=== PATIENT | male | born 1945 | race Caucasian/White ===

== ENCOUNTER 2017-01-31 13:33 | Emergency (ER) | payer MEDICARE, OTHER ==
[2017-01-31] MEDS ORDERED: Acetaminophen/oxyCODONE 325-5 MG Tab PO ONE (14:36)
[2017-01-31] MEDS ORDERED: diphenhydrAMINE 50 MG/ML SDV IM STA (15:30)
[2017-01-31] MEDS ORDERED: LORazepam 2 MG/ML MDV IM STA (16:06)
--- NOTE | 2017-01-31 17:12 | EDM.PDOC ---
ED HPI GENERAL MEDICAL PROBLEM - General Chief Complaint: Upper Extremity Injury/Pain Stated Complaint: SHOULDER PAIN Time Seen by Provider: 01/31/17 16:48 Source of Information: Reports: Patient, Family History Limitations: Reports: Physical Impairment - History of Present Illness INITIAL COMMENTS - FREE TEXT/NARRATIVE: 71 y.o.w.m with h/o parkinson disease, on carbidopa, came to the ed with is SO do to severe left shoulder pain. Pt was seen in several clinics and "nobody could help".Pt denied trauma. Pt describes the symptoms as spasm. he did not see a neurologist for several years. [place]opa level was never checked. Pt is not able to sit still. He is constantly moving. No N/V/D no other acute medical issues. Onset: Unknown/Unsure Onset Date: 01/30/17 Onset Time: 08:00 Location: Reports: Upper Extremity, Left, Generalized Quality: Reports: Ache, Burning, Dull, Pressure Severity: Moderate Improves with: Reports: Medication Worsens with: Reports: Rest Left Shoulder Pain Score (Numeric/FACES): 8 - Related Data Allergies Allergy/AdvReac Type Severity Reaction Status Date / Time acetaminophen [From Vicodin] Allergy Stomach Verified 01/31/17 14:25 Upset hydrocodone [From Vicodin] Allergy Stomach Verified 01/31/17 14:25 Upset Home Meds: Home Meds Carbidopa/Levodopa [Sinemet 25-250 MG] 01/31/17 [History] LORazepam [Ativan] 1 mg PO [id number] PRN #6 tablet 01/31/17 [Rx] Lisinopril 10 mg PO DAILY 01/31/17 [History] Orphenadrine [Norflex] 100 mg PO QID PRN #20 tab.er 01/31/17 [Rx] Oxazepam [Oxazepam] 15 mg PO BEDTIME 01/31/17 [History] Tamsulosin [Flomax] 0.4 mg PO BEDTIME 01/31/17 [History] atorvaSTATin [Lipitor] 10 mg PO BEDTIME 01/31/17 [History] Review of Systems - Review of Systems Review Of Systems: See Below Constitutional: Reports: No Symptoms Eyes: Reports: No Symptoms Ears: Reports: No Symptoms Nose: Reports: No Symptoms Mouth/Throat: Reports: No Symptoms Respiratory: Reports: No Symptoms Cardiovascular: Reports: No Symptoms GI/Abdominal: Reports: No Symptoms Genitourinary: Reports: No Symptoms Musculoskeletal: Reports: Muscle Pain, Muscle Stiffness Skin: Reports: No Symptoms Neurological: Reports: Other (dystonia) Psychiatric: Reports: No Symptoms ED EXAM, GENERAL - Physical Exam Exam: See Below Exam Limited By: Physical Impairment General Appearance: Alert, Thin Eye Exam: Bilateral Eye: Normal Inspection Ears: Normal External Exam Ear Exam: Bilateral Ear: Auricle Normal Nose: Normal Inspection Throat/Mouth: Normal Inspection Head: Atraumatic, Normocephalic Neck: Normal Inspection, Supple, Full Range of Motion Respiratory/Chest: No Respiratory Distress, Lungs Clear, Normal Breath Sounds Cardiovascular: Normal Peripheral Pulses, Regular Rate, Rhythm, No Edema Peripheral Pulses: 1+: Femoral (L), Femoral (R) GI/Abdominal: Normal Bowel Sounds, Soft, Non-Tender (Male) Exam: Deferred Rectal (Males) Exam: Deferred Back Exam: Decreased Range of Motion (s/p back surgery) Extremities: Normal Inspection, Normal Range of Motion Neurological: Alert, Oriented, CN II-XII Intact, Abnormal Gait, Other (dystonia) Psychiatric: Normal Affect, Normal Mood Skin Exam: Warm, Dry, Intact, Normal Color, No Rash Lymphatic: No Adenopathy Course - Vital Signs Text/Narrative:: 71 y.o.w.m with h/o parkinson disease, on carbidopa, came to the ed with is SO do to severe left shoulder pain. Pt was seen in several clinics and "nobody could help".Pt denied trauma. Pt describes the symptoms as spasm. he did not see a neurologist for several years. Cabidopa level was never checked. Pt is not able to sit still. He is constantly moving. No N/V/D no other acute medical issues. PE: Dystonia H/O parkinson disease, left shoulder pain Imaging: X ray left shoulder: NAD Impression: Dystonia,left shoulder sprain, H/O Parkinson disease,. muscle spam DDx: Sz, Psych, Meds SE Tx: Benadyl, Norflex, Percoset and Ativan, ICE to left shoulder Reexam: Improved after Ativan was applied Plan: D/C with instructions. Last Recorded V/S: Last Vital Signs Temp 36.6 C 01/31/17 13:40 Pulse 68 01/31/17 16:48 Resp 16 01/31/17 16:48 BP 109/42 L 01/31/17 16:48 Pulse Ox 95 01/31/17 16:48 - Orders/Labs/Meds Orders: Active Orders 24 hr Category Date Time Status Cooling Warming Measures [RC] ASDIRECTED Care 01/31/17 15:31 Active Shoulder Comp Lt [CR] Stat Exams 01/31/17 13:50 Taken Ice Pack [Ice Therapy] [OM.PC] Routine Oth 01/31/17 15:31 Ordered Meds: Medications Discontinued Medications Generic Name Dose Route Start Last Admin Trade Name Freq PRN Reason Stop Dose Admin Diphenhydramine HCl 50 mg 01/31/17 15:30 01/31/17 15:44 Benadryl IM 01/31/17 15:31 50 mg ONETIME STA Administration Lorazepam 2 mg 01/31/17 16:06 01/31/17 16:26 Ativan IM 01/31/17 16:07 2 mg ONETIME STA Administration Orphenadrine Citrate 60 mg 01/31/17 15:30 01/31/17 15:42 Norflex IM 01/31/17 15:31 60 mg ONETIME STA Administration Oxycodone/Acetaminophen 1 tab 01/31/17 14:36 01/31/17 14:47 Percocet 325-5 Mg PO 01/31/17 14:37 1 tab ONETIME ONE Administration Departure - Departure Time of Disposition: 17:08 Disposition: Home, Self-Care 01 Condition: Good Clinical Impression: Dystonia - Discharge Information Prescriptions: LORazepam [Ativan] 1 mg PO [id number] PRN #6 tablet PRN Reason: Anxiety Orphenadrine [Norflex] 100 mg PO QID PRN #20 tab.er PRN Reason: Muscle Spasm Referrals: José Miguel Calero MD [Primary Care Provider] - Forms: ED Department Discharge Additional Instructions: Pleae f/u with neurology as.soon as possible, please take the meds a recommended , Please stop taking Flexeril, take norflex instead. Please come back if symptoms get worse. Benadryl as well. - My Orders Last 24 Hours: My Active Orders 01/31/17 13:50 Shoulder Comp Lt [CR] Stat 01/31/17 15:31 Cooling Warming Measures [RC] ASDIRECTED Ice Pack [Ice Therapy] [OM.PC] Routine - Assessment/Plan Last 24 Hours: My Active Orders 01/31/17 13:50 Shoulder Comp Lt [CR] Stat 01/31/17 15:31 Cooling Warming Measures [RC] ASDIRECTED Ice Pack [Ice Therapy] [OM.PC] Routine
--- NOTE | 2017-02-03 13:44 | CR ---
INDICATION: Pain. No known trauma. Burning and stabbing pain x2-3 months. LEFT SHOULDER: Three views of the left shoulder, 01/31/2017, were compared with 02/11/2013, and revealed progressive hypertrophic degenerative changes and joint space narrowing at the glenohumeral joint. Progressively more severe impingement is also suggested with cranial subluxation of the humerus and impingement on the undersurface of the acromion with sclerosis at the undersurface of the acromion. This is compatible with rotator cuff injury and/ or degeneration. Degenerative changes of at least moderate degree are also noted at the AC joint and appear progressive, compared with the previous study also. A definite acute fracture or dislocation was not identified. IMPRESSION: 1. Degenerative changes with joint space narrowing AC and glenohumeral joints, progressive compared with the previous study. 2. Impingement compatible with rotator cuff injury and/or degeneration. [facility]
== END 2017-01-31 17:17 | disposition home or self-care (01) ==
LOC: FB.ED 13:33
DX: G24.9 Dystonia, unspecified (principal); M25.512 Pain in left shoulder; G20 Parkinson's disease; Z88.8 Allergy status to other drugs, medicaments and biological substances; Z88.5 Allergy status to narcotic agent; Z79.899 Other long term (current) drug therapy
CPT/HCPCS: 73030; 96372; 99283; A9270; J1200; J2060; J2360; 99284